=== PATIENT | female | born 1985 | race Two or more races ===

== ENCOUNTER 2018-05-08 17:56 | Emergency (ER) | payer OTHER ==
[~2018-05-08] VITALS: Ht 160 cm; Wt 81.7 kg
[2018-05-08] MEDS ORDERED: IBUPROFEN600 MG PO (19:20)
[2018-05-08] MEDS ORDERED: KEFLEX500 MG PO (20:53)
== END 2018-05-08 21:09 | disposition home or self-care (01) ==
LOC: ED 17:56
DX: O91.22 Nonpurulent mastitis associated with the puerperium (principal); O86.20 Urinary tract infection following delivery, unspecified; O99.53 Diseases of the respiratory system complicating the puerperium; J32.9 Chronic sinusitis, unspecified
CPT/HCPCS: 80053; 81001; 84703; 85025; 87088; 87502; 96361; 96374; 99283-25; J2405; J7030

== ENCOUNTER 2022-06-03 16:21 | Inpatient (IN) | payer SELFPAY ==
--- NOTE | ~2022-06-03 | OR ---
[facility] [address], [place] [address] Draft DATE OF OPERATION: 06/03/2022 SURGEON: Kaelyn Cardenas DO PROCEDURE: Repeat primary low-transverse . PREOPERATIVE DIAGNOSES: PPROM, history of prior , gestational carrier, advanced maternal age, 36 weeks gestation. POSTOPERATIVE DIAGNOSIS: , delivered. Premature prelabor rupture of membranes. History of prior , gestational carrier. Advanced maternal age. HEAD FIELD HOCKEY COACH: Francois Orta M.D. ANESTHESIA: Spinal. BLOOD LOSS: 600 mL. COMPLICATIONS: None. FINDINGS: viable female , weighing 5 pounds 4 ounces in the left occiput anterior position, loose nuchal x2. Apgars 9 and 9 at 1 and 5 minutes respectively. Normal-appearing bilateral tubes and ovaries. Minimal scarring from prior delivery. INDICATIONS: The patient is a 37-year-old G3, P2-0-0-2, 36 weeks gestation who presented for complaints of possible rupture of membranes. Nitrazine was equivocal. AmniSure test was positive confirming rupture. Risks, benefits, and alternatives to proceeding with repeat were discussed. The patient is a gestational carrier. Plan was discussed with the parents who agreed with proceeding. Contents were signed and all questions answered to the best of my ability. PATIENT NAME: GAIL MUJICA OPERATIVE REPORT DATE OF : 85 REPORT #: [id number] PHYSICIAN: KAELYN CARDENAS DO PCP: WANG MAR REPORT IS CONFIDENTIAL AND NOT TO BE RELEASED WITHOUT AUTHORIZATION [facility] [address], [place] [address] Draft DESCRIPTION OF PROCEDURE: The patient was taken to the operating room where spinal anesthesia was placed. She received 2 g Ancef and azithromycin 500 mg IV. She was positioned in supine position with a leftward tilt and was prepped and draped in normal sterile fashion. Once adequate anesthesia was confirmed, incision was made with a scalpel through her prior Pfannenstiel scar and carried down to the underlying layer of fascia with Bovie cautery cauterizing perforating vessels as they were encountered. The fascia was nicked at midline and extended laterally with Huff scissors. Rectus muscle was dissected off bluntly and sharply with Huff scissors encountering minimal scarring. Peritoneum was entered bluntly. Peritoneal incision was extended superiorly with Huff scissors and then inferiorly also with Huff scissors with excellent visualization of the bladder and further expand of lateral traction. Rickie retractor was placed. Hysterotomy was made with a scalpel. The uterus was entered bluntly. The infant's head was easily elevated to the level of the incision delivered through loose nuchal x2 was noted. This was reduced. Shoulders were delivered followed by remainder of the infant's body. Baby gave a strong spontaneous cry. Cord was immediately doubly clamped and cut and baby was handed to waiting nursery team including long goods drier. Cord blood was collected for type and Eleni. Placenta was manually expressed and uterus was cleared of clots and debris. Stay suture of 0-Monocryl was placed at the right apex. Hysterotomy was closed in a double-layer closure with 0-Monocryl in a running locked fashion followed by 0-Monocryl in an imbricating manner with excellent hemostasis noted. Pelvis was suction irrigated with warm sterile saline confirming hemostasis. Rickie retractor was removed. Perineum was closed with 2-0 Vicryl in a running fashion. Rectus muscle was suction irrigated with warm sterile saline. Perforating vessels cauterized with Bovie cautery. Rectus muscles reapproximated midline with 0-Vicryl in a simple interrupted fashion. Fascia was closed with 0-Vicryl in a running fashion working 1st from right apex to midline, followed by left apex to midline meeting in the middle. Subcutaneous layer was suction irrigated with warm sterile saline. Perforating blood vessels were cauterized with Bovie cautery with resulting hemostasis. Subcutaneous layer was reapproximated with 3-0 Vicryl in a running fashion. Skin was closed with claude. Sponge and instrument counts were correct x2. Uterus was Crede'd with scant return of blood. The patient remained in the OR for placement of TAP blocks and baby was taken to the nursery for further assessments. Kaelyn Cardenas DO EMZ/MODL PATIENT NAME: GAIL MUJICA OPERATIVE REPORT DATE OF : 85 REPORT #: [id number] PHYSICIAN: KAELYN CARDENAS DO PCP: WANG MAR REPORT IS CONFIDENTIAL AND NOT TO BE RELEASED WITHOUT AUTHORIZATION [address] [address] Draft /[id number] Copies: ~ PATIENT NAME: GAIL MUJICA OPERATIVE REPORT DATE OF : 85 REPORT #: [id number] PHYSICIAN: KAELYN CARDENAS DO PCP: WANG MAR REPORT IS CONFIDENTIAL AND NOT TO BE RELEASED WITHOUT AUTHORIZATION
[~2022-06-03 16:21] MED LIST: IBUPROFEN600 MG PO; KEFLEX500 MG PO
--- NOTE | 2022-06-04 09:29 | PR ---
[facility] [address] [facility] [place], [place] [address] Signed PP Progress Notes Datetime Report Generated by CPMarkus: 06/04/2022 09:29 SUBJECTIVE: [id number] Pain: Within Normal Limits Nausea/Vomiting: Denies Bowel Movement: No Vital Signs: [id number] Vital Signs: Reviewed; Within Normal Limits Exam Comments: NAD, sitting in bed with ice pack on incision No dyspnea/ retractions Abd SNTND Extremities: trace edema, SCDs in place IMPRESSION/PLAN/PROCEDURES: [id number] Impression: Normal Progression Plan: Continue Present Management Progress Notes: [id number] POD#1 s/p RLTCS @ 36 weeks gestation for PPROM -progressing well postop -madrid still in place, pt requesting removal, stood at bedside without dizziness/ lightheadedness -pain well controlled with TAP blocks, ice -reports mood doing well so far Continue routine postop care Ok to shower at 24h and remove dressing in the shower Signing Physician: Kaelyn Cardenas DO Copies: ~ *Electronically Signed* 06/04/22 09 KAELYN CARDENAS DO PATIENT NAME: GAIL MUJICA PROGRESS NOTE DATE OF : 85 PHYSICIAN: KAELYN CARDENAS DO RPT #: [id number] REPORT IS CONFIDENTIAL AND NOT TO BE RELEASED WITHOUT AUTHORIZATION
--- NOTE | 2022-06-05 13:14 | PR ---
[facility] [address], [place] [address] Signed PP Progress Notes Datetime Report Generated by CPN: 06/05/2022 13:14 SUBJECTIVE: [id number] Pain: Within Normal Limits Nausea/Vomiting: Denies Flatus: Yes Bowel Movement: Yes Vital Signs: [id number] Vital Signs: Reviewed; Within Normal Limits Cardiovascular: Normal Respiratory: Normal Abdomen/Uterus: Normal Lochia: Normal Extremities: Normal Incision: Normal Progress: Normal Exam Comments: NAD RRR No dyspnea/ retractions Abd SNTND, FFBU Incision: c/d/i, margins well-approximated. claude on right apex coming loose, removed. Extremities: trace BLLE pedal edema IMPRESSION/PLAN/PROCEDURES: [id number] Impression: Normal Progression; Induced Hypertension Plan: Continue Present Management; Discharge Procedures: None Progress Notes: 37 yo POD#2 s/p RLTCS at 36 weeks gestation for PPROM -gestational carrier, baby will remain inpatient with parents -pt doing well postop: pain well-controlled with orals, ambulating, voiding, tolerating regular diet, lochia light, hgb 11.9 POD#1 from 13.3 on admission. Requesting DC to home today, will return to clinic tomorrow for staple removal -pumping with good return Signing Physician: Berenice Cardenas DO *Electronically Signed* 06/05/22 1314 BERENICE CARDENAS DO PATIENT NAME: GAIL MUJICA PROGRESS NOTE DATE OF : 85 PHYSICIAN: BERENICE CARDENAS DO RPT #: [id number] REPORT IS CONFIDENTIAL AND NOT TO BE RELEASED WITHOUT AUTHORIZATION
== END 2022-06-05 14:36 | disposition home or self-care (01) | DRG 788 ==
LOC: FBCO 16:21 → FBC 16:50 → MS 06-05 03:44 → FBC 06-05 07:03
PROVIDERS: ADMIT Obstetrics & Gynecology; ATTEND Obstetrics & Gynecology
PROC: 10D00Z1 Extraction of Products of Conception, Low, Open Approach (ICD-10-PCS; principal; 2022-06-03 18:30)
DX: O60.14X0 Preterm labor third trimester with preterm delivery third trimester, not applicable or unspecified (principal); O34.211 Maternal care for low transverse scar from previous cesarean delivery; Z3A.36 36 weeks gestation of pregnancy; Z37.0 Single live birth; Z67.40 Type O blood, Rh positive; Z20.822 Contact with and (suspected) exposure to COVID-19; O13.4 Gestational [pregnancy-induced] hypertension without significant proteinuria, complicating childbirth
CPT/HCPCS: 01961; 36415; 76942; 80053; 82570; 83615; 84112; 84156; 84550; 85027; 86850; 86900; 86901; 87502; A9270; C9803; J0456; J0690; J0780; J1100; J1200; J1650; J1885; J2274; J2405; J2590; J2765; J2795; J3010; U0003

== ENCOUNTER 2025-01-23 09:07 | Emergency (ER) | payer BC ==
[~2025-01-23] VITALS: Ht 160 cm; Wt 88.9 kg
[2025-01-23] MEDS ORDERED: LETROZOLE2.5 MG PO (09:26)
[2025-01-23 11:13] VITALS: BP 151/102
== END 2025-01-23 11:14 | disposition home or self-care (01) ==
LOC: ED 09:07
DX: O00.00 Abdominal pregnancy without intrauterine pregnancy (principal)
CPT/HCPCS: 96372; 99283; J9260

== ENCOUNTER 2025-01-27 15:34 | Emergency (ER) | payer OTHER ==
[~2025-01-27] VITALS: Ht 160 cm; Wt 88.9 kg
--- OUTSIDE RECORDS SUMMARY | ~2025-01-27 | XMS | Continuity of Care Document ---
Demographics + + + | Address | [address] | | | [place] [address] | + + + | Preferred Language | Unknown | + + + | Marital Status | | + + + | Restorationist Affiliation | Unknown | + + + | Race | Unknown | + + + | Ethnic Group | Not or | + + + Author + + + | Author | [facility] | + + + | Organization | [facility] | + + + | Address | [address] | | | [place] [address] | + + + | Phone | | + + + Care Team Providers + + + + | Care Negotiator Sales Name | Role | Phone | + + + + Unavailable | Unavailable | + + + + Unavailable | Unavailable | + + + + Allergies and Intolerances + + + + + + | date | description | facility | reaction | severity | + + + + + + | 2025-01-23 | Metronidazole | [facility] - | (no reaction) | Moderate | | 00:00 | | [facility] | | | + + + + + + | 2025-01-23 | Metronidazole | [facility] - | (no reaction) | Moderate | | 00:00 | | [facility] | | | + + + + + + | 2025-01-23 | Metronidazole | [facility] - | (no reaction) | Moderate | | 00:00 | | [facility] | | | | [facility] | | | + + + + + + Encounters No information. Functional Status No information. Immunizations No information. Medications + + + + | date | description | facility | + + + + | (no date) | IBUPROFEN | [facility] | | | | [facility] | + + + + | (no date) | LETROZOLE | [facility] | | | | [facility] | + + + + Problems + + + + | date | description | [facility] | + + + + | 2025-01-23 00:00 | Abnormal gestation | [facility] | | | | [facility] | + + + + Procedures No information. Results/Labs No information. Social History +--------+ + + | date | description | facility | +--------+ + + Vital Signs + + + +---------+ | date | measurement | value | units | + + + +---------+ | 2025-01-23 00:00 | BMI | 34.7 | kg/m2 | + + + +---------+ | 2025-01-23 00:00 | BP_diastolic | 102 | mmHg | + + + +---------+ | 2025-01-23 00:00 | BP_systolic | 151 | mmHg | + + + +---------+ | 2025-01-23 00:00 | heart_rate | 80 | /min | + + + +---------+ | 2025-01-23 00:00 | height_metric | 160.02 | cm | + + + +---------+ | 2025-01-23 00:00 | height_standard | 63 | in | + + + +---------+ | 2025-01-23 00:00 | o2_saturation | 100 | % | + + + +---------+ | 2025-01-23 00:00 | respiration_rate | 17 | /min | + + + +---------+ | 2025-01-23 00:00 | | 98.1 | F | | | temperature_standar | | | | | d | | | + + + +---------+ | 2025-01-23 00:00 | weight_metric | 88.901 | kg | + + + +---------+ | 2025-01-23 00:00 | weight_standard | 195.993 | lb | + + + +---------+"
[~2025-01-27 15:34] MED LIST changes: +LETROZOLE2.5 MG PO
--- OUTSIDE RECORDS SUMMARY | 2025-01-27 15:42 | XMS ---
PreManage Notification: GAIL MUJICA Security Burial Needs Salesperson Events No recent Security Events currently on file CRITERIA MET - [facility] - 2 Visits in 30 Days CARE PROVIDERS There are no care providers on record at this time. Juan David has no Care Guidelines for this patient. [facility] VIS[facility] (12 MO.) [facility] NOTE: Visits indicate total known visits. ED/UCC VISIT TRACKING (12 MO.) 01/27/2025 15:36 [facility] TYPE: Emergency COMPLAINT: - INJECTION NEEDED METHOTREXATE/HAS ORDER 01/23/2025 09:08 [facility] [place] TYPE: Emergency COMPLAINT: - INJECTION DIAGNOSES: - Allergy status to other drugs, medicaments and biological substances - Encounter for initial prescription of injectable contraceptive - Unspecified ectopic without intrauterine INPATIENT VISIT TRACKING (12 MO.) No inpatient visits to display in this time frame [email or web address]
[2025-01-27 17:13] VITALS: BP 171/127
== END 2025-01-27 17:14 | disposition home or self-care (01) ==
LOC: ED 15:34
DX: O20.0 Threatened abortion (principal); O09.529 Supervision of elderly multigravida, unspecified trimester; Z79.899 Other long term (current) drug therapy; Z88.8 Allergy status to other drugs, medicaments and biological substances
CPT/HCPCS: 84702; 85025; 99281